=== PATIENT | female | born 1990 ===

== ENCOUNTER 2022-06-26 19:20 | Emergency (ER) | payer OTHER ==
[~2022-06-26] VITALS: Ht 167.6 cm; Wt 117.9 kg
[2022-06-26] MEDS ORDERED: ONDANSETRON ODT8 MG PO (23:11)
[2022-06-26] MEDS ORDERED: PEPCID AC20 MG PO (23:11)
== END 2022-06-26 23:52 | disposition home or self-care (01) ==
LOC: ER 19:20
DX: K29.70 Gastritis, unspecified, without bleeding (principal); R11.2 Nausea with vomiting, unspecified